=== PATIENT | female | born 2000 | race Caucasian/White ===

== ENCOUNTER 2024-04-04 09:51 | Emergency (ER) | payer MEDICAID, OTHER ==
[~2024-04-04] VITALS: Ht 165.1 cm; Wt 45.4 kg
[2024-04-04 10:54] LABS: BASOPHILS # (AUTO) 0.1 K/UL (0.0-0.2); BASOPHILS % (AUTO) 0.6 % (0.0-2.0); EOSINOPHILS # (AUTO) 0.2 K/uL (0.0-0.7); EOSINOPHILS % (AUTO) 1.8 % (0.0-7.0); HEMATOCRIT 43.2 % (31.2-41.9); HEMOGLOBIN 14.5 g/dL (10.9-14.3); LYMPHOCYTES # (AUTO) 4.4 K/uL (0.8-4.8); LYMPHOCYTES % (AUTO) 37.4 % (20.5-51.5); MEAN CORPUSCULAR HEMOGLOBIN 29.9 uug (24.7-32.8); MEAN CORPUSCULAR HGB CONC 34 g/dL (32.3-35.6); MEAN CORPUSCULAR VOLUME 88.8 fL (75.5-95.3); NEUTROPHILS # (AUTO) 6.2 K/uL (1.8-8.9); NEUTROPHILS % (AUTO) 52.2 % (38.5-71.5); PLATELET COUNT (AUTO) 262 K/uL (179-408); RED BLOOD CELL COUNT(AUTO) 4.87 MIL/uL (3.63-4.92); RED CELL DISTRIBUTION WIDTH 13.7 % (12.3-17.7); WHITE BLOOD COUNT (AUTO) 11.9 K/uL (3.8-11.8)
[2024-04-04 11:07] LABS: ALANINE AMINOTRANSFERASE 19 U/L (14-59); ALBUMIN 4.6 g/dL (3.4-5.0); ALKALINE PHOSPHATASE 95 U/L (50-136); ASPARTATE AMINOTRANSFERASE 14 U/L (15-37); BILIRUBIN,TOTAL 0.4 mg/dL (0.2-1.0); CALCIUM 9.8 mg/dL (8.5-10.1); CARBON DIOXIDE 25 mmol/L (21-32); CHLORIDE 103 mmol/L (98-107); CREATININE 0.8 mg/dL (0.6-1.3); GLUCOSE 102 mg/dL (74-106); POTASSIUM 4.8 mmol/L (3.5-5.1); SODIUM SERUM 141 mmol/L (136-145); TOTAL PROTEIN, SERUM 8.8 g/dL (6.4-8.2); UREA NITROGEN, BLOOD 15 mg/dL (7-18)
[2024-04-04 11:08] LABS: DIFFERENTIAL COMMENT 1
[2024-04-04 11:10] LABS: BILIRUBIN,DIRECT < 0.1 mg/dL (0.0-0.2)
[2024-04-04] MEDS ORDERED: HALOPERIDOL 0.5 MG TABLET ONE ×2 (11:30→12:25)
[2024-04-04] MEDS: HALOPERIDOL 0.5 MG TABLET PO ONE ×2 (11:33→12:28)
[2024-04-04] MEDS ORDERED: HALO0.5T6 PO (12:11)
[2024-04-04 13:12] LABS: MAGNESIUM 2.4 mg/dL (1.8-2.4)
[2024-04-04 13:42] VITALS: BP 122/78; TEMP 98; O2SAT 99
== END 2024-04-04 13:30 | disposition home or self-care (01) ==
LOC: ER 09:51
DX: F60.0 Paranoid personality disorder (principal); F20.9 Schizophrenia, unspecified; Z88.0 Allergy status to penicillin; Z88.2 Allergy status to sulfonamides
CPT/HCPCS: 36415; 83735; 85025; A4606; A4663

== ENCOUNTER 2025-03-03 11:05 | Emergency (ER) | payer MEDICAID ==
[~2025-03-03] VITALS: Ht 165.1 cm; Wt 49.9 kg
[~2025-03-03 11:05] MED LIST: HALO0.5T6 PO
[2025-03-03 13:14] LABS: BASOPHILS # (AUTO) 0.1 K/UL (0.0-0.2); BASOPHILS % (AUTO) 0.6 % (0.0-2.0); DIFFERENTIAL COMMENT 1; EOSINOPHILS # (AUTO) 0.2 K/uL (0.0-0.7); EOSINOPHILS % (AUTO) 1.9 % (0.0-7.0); HEMATOCRIT 42.1 % (31.2-41.9); HEMOGLOBIN 14.1 g/dL (10.9-14.3); LYMPHOCYTES # (AUTO) 3.9 K/uL (0.8-4.8); MEAN CORPUSCULAR HEMOGLOBIN 29.5 uug (24.7-32.8); MEAN CORPUSCULAR HGB CONC 33 g/dL (32.3-35.6); MEAN CORPUSCULAR VOLUME 88.2 fL (75.5-95.3); MONOCYTES # (AUTO) 0.8 K/uL (0.1-1.30); NEUTROPHILS # (AUTO) 6.7 K/uL (1.8-8.9); NEUTROPHILS % (AUTO) 57.5 % (38.5-71.5); PLATELET COUNT (AUTO) 279 K/uL (179-408); RED BLOOD CELL COUNT(AUTO) 4.77 MIL/uL (3.63-4.92); RED CELL DISTRIBUTION WIDTH 13.9 % (12.3-17.7); WHITE BLOOD COUNT (AUTO) 11.7 K/uL (3.8-11.8)
[2025-03-03 13:21] LABS: CALCIUM 9.4 mg/dL (8.5-10.1); CREATININE 0.6 mg/dL (0.6-1.3); POTASSIUM 4.2 mmol/L (3.5-5.1)
[2025-03-03 13:43] LABS: MAGNESIUM 2.3 mg/dL (1.8-2.4)
[2025-03-03 14:14] VITALS: BP 110/79; O2SAT 100
== END 2025-03-03 14:14 | disposition home or self-care (01) ==
LOC: ER 11:05
DX: R51.9 Headache, unspecified (principal); F45.0 Somatization disorder; F41.9 Anxiety disorder, unspecified; F20.9 Schizophrenia, unspecified; Z79.899 Other long term (current) drug therapy; Z88.0 Allergy status to penicillin; Z88.2 Allergy status to sulfonamides
CPT/HCPCS: 36415; 83735; 85025; A4606; A4663

== ENCOUNTER 2025-04-18 18:42 | Emergency (ER) | payer MEDICAID ==
[~2025-04-18] VITALS: Ht 165.1 cm; Wt 49.9 kg
[2025-04-18 20:07] VITALS: BP 115/72; O2SAT 100
== END 2025-04-18 20:08 | disposition left against medical advice (07) ==
LOC: ER 18:44
DX: R07.89 Other chest pain (principal); R44.3 Hallucinations, unspecified; F41.9 Anxiety disorder, unspecified; Z79.899 Other long term (current) drug therapy; Z88.0 Allergy status to penicillin; Z88.2 Allergy status to sulfonamides
CPT/HCPCS: A4606; A4663